=== PATIENT | female | born 1940 | race Caucasian/White ===

== ENCOUNTER 2023-10-12 05:09 | Emergency (ER) | payer MEDICARE, SELFPAY ==
[2023-10-12] VITALS (7 sets, daily range): BP systolic 105–130; BP diastolic 54–71; BMI 18.9
--- NOTE | 2023-10-12 07:47 | ED.GENMED ---
History of Present Illness
General
Chief Complaint: Breast Problem
Source: patient
Exam Limitations: none
Time Seen by Provider: 10/12/23 07:08
Nursing documentation reviewed up to this point in time: agreed with
Travel History
Have you had any contact with someone who has COVID-19?: No
Do you have any symptoms of coronavirus? Fever > 100 degrees, chills, cough, shortness of breath, sore throat, loss of taste or smell, muscle aches, or headache?: No
History of Present Illness
History of Present Illness:
Patient is an 82-year-old female on hospice for breast cancer brought by EMS for evaluation. Patient developed bleeding of right breast this morning and had syncopal episode. Patient reports she had bleeding from the left breast several nights ago
as well as prior to arrival. She reports she was walking to open the door for the nurse to come to her house when she felt like she was going to pass out. As documented she is on hospice and has hospice come out once per week.
She is on blood thinners. She denies any headache. She has no other complaints.
Review of Systems
Review of Systems
Allergies reviewed?: Yes
All Other Systems: ROS reviewed and negative except as documented in HPI and ROS
Constitutional: Reports no symptoms
EENT: Reports no symptoms
Respiratory: Reports no symptoms
Cardiac: Reports syncope
ABD/GI: Reports no symptoms; Denies nausea or vomiting
: Reports no symptoms
Musculoskeletal: Reports no symptoms
Skin: Reports no symptoms
Neurological: Reports no symptoms
Psychiatric: Reports no symptoms
Phy Exam
General Physical Exam
General Presentation: no apparent distress
General age: appears stated age
General Skin: warm and dry
General Habitus: elderly
General Mental: alert
General Hydration: appears well hydrated
Cardiovascular Exam
Cardiovascular Exam: regular rate/rhythm, no murmur and normal peripheral pulses
Pulmonary Exam
Pulmonary Exam: lungs clear and no respiratory distress
Neurological Exam
Neurological Exam: alert and oriented x3
Musculoskeletal Exam
Musculoskeletal Exam: full ROM
Skin Exam
Skin Exam: normal color, warm/dry and other (left breast macerated raw friable tissue slow intermittent bleeding throughout varies regions of breast tissue )
Psychiatric Exam
Psychiatric Exam: normal mood/affect
Course
Orders/Labs/Results
Orders:
Orders
10/12/23 07:41
IV Insert/Care/Rem.- Treatment PRN
10/12/23 07:42
Electrocardiogram (*1) Stat
Reason for Study: Other
Other Reason for Exam: chest pain
Cardiac Monitoring- Treatment ONCE
EKG- Treatment ONCE
10/12/23 07:53
Complete Blood Count/With Diff Urgent
Comprehensive Metabolic Panel Urgent
Troponin I Urgent
10/12/23 08:31
0.9% Sodium Chloride 1000 ml [Nss] 1,000 ml IV BOLUS
Ondansetron Injectable [Zofran] 4 mg IV NOW STA
Abnormal Lab Results
10/12/23
07:53
RBC 2.73 L 10^6/uL
(4.20-5.40)
Hgb 8.0 L g/dL
(12.0-16.0)
Hct 24.2 L %
(37.0-47.0)
RDW 15.0 H %
(11.5-14.5)
Absolute Lymphs (auto) 0.7 L 10^3/uL
(1.2-3.4)
Neutrophils % 81.6 H %
(42.2-75.2)
Lymphocytes % 10.5 L %
(20.5-51.1)
BUN 21 H mg/dl
(7-17)
Creatinine 0.5 L mg/dL
(0.6-1.0)
Glucose 107 H mg/dl
(70-99)
10/12/23 07:53
10/12/23 07:53
Vital Signs
Initial and Last Documented VS:
Initial Vital Signs
Temp Pulse Resp BP Pulse Ox
97.8 F 83 16 125/68 99
10/12/23 05:10 10/12/23 05:10 10/12/23 05:10 10/12/23 05:10 10/12/23 05:10
Last Documented Vital Signs
Temp Pulse Resp BP Pulse Ox
97.8 F 88 18 116/54 99
10/12/23 05:10 10/12/23 07:57 10/12/23 07:57 10/12/23 10:38 10/12/23 07:57
MDM/Problems Addressed
Differential Diagnosis Includes:
not limited to syncope , bleeding from left breast.
MDM/Problems Addressed:
Patient is an 82-year-old female as documented on hospice for left breast cancer untreated. Patient has had issues with intermittent bleeding in the breast and this morning called hospice nurse because of bleeding. On the way to get there where
she had a syncopal episode. She presented here awake alert no acute distress asymptomatic and had no dizziness or chest pain on arrival. She does have small mount of intermittent oozing from left breast. I did apply Gelfoam to the area with Hellen
and this has subsided. She is in no acute distress here eating and drinking here her hemoglobin is 8.0 I do not have any other labs on her. I did speak with hospice nurse Melissa over the phone who can arrange for more frequent visitations to help
and dress bleeding from left breast. Patient currently only has hospice once a week but they can increase as needed.
Patient will go home with outpatient hospice follow-up. She is in no acute distress.
*Pulse Oximetry
Patient hypoxic: no
*EKG
Interpreted by ED Provider?: Yes
Interpretation: normal
Heart Rate: 79
Rhythm: sinus
Ischemia: no ischemia
*Critical Care Note
Total Time (30-74mins, 75-104mins- exclusive of procedures): Not Applicable
ED Attending Note
-
Portions of this chart may have been created with voice recognition software.� Occasional wrong word or��sound alike� substitutions may have occurred due to the inherent limitations of voice recognition software.
Discharge Plan
Departure
Patient Disposition: Home (Routine Discharge)
Date of Disposition: 10/12/23
Time of Disposition: 10:29
Patient with high blood pressure during this ER visit?: No
Condition: Fair
Covid-19: Not Applicable
Discharge Problem:
Syncope, Bleeding from breast, Anemia
Instructions: Syncope (Fainting) (DC)
Prescriptions:
No Action
No Current Medications
0
Referrals:
Samuel Pacheco MD [Family Provider] -
Activity Restrictions/Additional Instructions:
You were seen here today for passing out and bleeding left breast. You are found to be anemic,.
please call hospice and arrange for more frequent visits to assist in daily dressing changes as needed for bleeding of left breast. You may return if needed if any worsening symptoms or concerns
Increase fluid intake and stay well hydrated.
Interventions
Interventions:
*Risk Screen - Suicide Last Done: 10/12/23 05:10
*General Assessment Last Done: 10/12/23 05:10
*Neglect/Abuse Screening Last Done: 10/12/23 05:10
ED- Fall Risk Assessment Last Done: 10/12/23 07:54
*ED COVID-19 Vaccine History Last Done: 10/12/23 05:10
*Nursing Disposition Last Done: 10/12/23 11:00
ED-Skin Assessment Last Done: 10/12/23 05:25
Discharge Date and Time
Discharge Date/Time: 10/12/23 11:05
Print Language: IRISH
[2023-10-12 08:32] LABS: % Basophils 0.7 % (0-2); % Eosinophils 0.1 % (0-6); % Immature Granulocytes 0.3 % (0-0.5); % Lymphocytes 10.5 % (20.5-51.1); % Monocytes 6.8 % (1.7-9.3); % Neutrophils 81.6 % (42.2-75.2); Absolute Basophils 0.1 10^3/uL (0-0.2); Absolute Lymphocytes 0.7 10^3/uL (1.2-3.4); Absolute Monocytes 0.5 10^3/uL (0.1-0.6); Absolute Neutrophils 5.5 10^3/uL (1.4-6.5); Hematocrit 24.2 % (37.0-47.0); Mean Corp Hgb Conc. 33.1 g/dL (33.0-37.0); Mean Corpuscular Hgb 29.3 pg (27.0-31.0); Mean Corpuscular Volume 88.6 fL (81.0-99.0); Mean Platelet Volume 9.5 fL (7.4-10.4); Nucleated Red Blood Cells % 0 %; Platelet Count 209 10^3/uL (130-400); Red Blood Cell Count 2.73 10^6/uL (4.20-5.40); White Blood Cell Count 6.8 10^3/uL (4.8-10.8)
[2023-10-12 08:45] LABS: ALT (SGPT) 11 U/L (0-35); AST (SGOT) 25 U/L (14-36); Albumin 3.6 g/dl (3.5-5.0); Alkaline Phosphatase 52 U/L (38-126); Blood Urea Nitrogen 21 mg/dl (7-17); Carbon Dioxide 27 mmol/L (22-30); Chloride 105 mmol/L (98-107); Estimated Creatinine Clearance 59 ml/min; Glucose 107 mg/dl (70-99); Potassium 5.1 mmol/L (3.5-5.1); Sodium 139 mmol/L (135-145); Total Bilirubin 0.5 mg/dl (0.2-1.3); Total Protein 6.3 g/dl (6.3-8.2); eGFR > 60.00
[2023-10-12 08:55] LABS: Troponin I < 0.012 ng/ml
== END 2023-10-12 11:05 | disposition home or self-care (01) ==
LOC: EMR 05:09
PROVIDERS: Nurse Practitioner; EMERGENCY PHYSICIAN Emergency Medicine; FAMILY PHYSICIAN Family Medicine
DX: R55 Syncope and collapse (principal); N64.59 Other signs and symptoms in breast; D64.9 Anemia, unspecified; C50.912 Malignant neoplasm of unspecified site of left female breast; Z79.01 Long term (current) use of anticoagulants
CPT/HCPCS: 99283; 80053; 84484; 85025; 93005

== ENCOUNTER 2024-09-15 10:20 | Emergency (ER) | payer MEDICARE, SELFPAY ==
[2024-09-15 10:28] VITALS: BP 114/56
--- NOTE | 2024-09-15 11:19 | ED.GENMED ---
History of Present Illness
General
Chief Complaint: Fall
Time Seen by Provider: 09/15/24 10:49
History of Present Illness
History of Present Illness:
83-year-old female presents the emergency department for evaluation of a scalp laceration. She fell this morning, reportedly had a dose of Ativan last night for anxiety and woke up dizzy. She has stage IV end-stage breast cancer and is on hospice
and is adamant that she wants no evaluation and treatment outside of wound care. She states to me that she is simply ready to and wants her wound taken care of so that she can be discharged home
Review of Systems
Review of Systems
Allergies reviewed?: Yes
All Other Systems: ROS reviewed and negative except as documented in HPI and ROS
Phy Exam
Physical Exam
Physical Exam:
GEN: Well appearing, NAD, WDWN
HEENT: 6 cm full-thickness laceration to the right temporal forehead minimal active bleeding, oral mucosa moist, no scleral icterus
Cardiac: Regular rate
Lung: No respiratory distress, no tachypnea
MSK: No gross deformity or injuries
Skin: Good color, no pallor or jaundice, no rashes
Neuro: AO x3, moves all extremities freely
Psych: Calm, cooperative
Course
Vital Signs
Initial and Last Documented VS:
Initial Vital Signs
Temp Pulse Resp BP Pulse Ox
97.7 F 103 16 114/56 97
09/15/24 10:28 09/15/24 10:28 09/15/24 10:28 09/15/24 10:28 09/15/24 10:28
Last Documented Vital Signs
Temp Pulse Resp BP Pulse Ox
97.7 F 103 16 114/56 97
09/15/24 10:28 09/15/24 10:28 09/15/24 10:28 09/15/24 10:28 09/15/24 10:28
Procedures
Laceration Closure
Right forehead:
Status of Wound: clean
Size of Wound in cm: 6
Description of Wound Edges: sharp
Preparation: cleaned with saline
Type of Closure: Dermabond-skin glue
MDM/Problems Addressed
MDM/Problems Addressed:
Patient was adamant she did not want head CT, I did discuss with the patient and family that obtaining an CT would provide objective information in regards to possible intracranial hemorrhage that could indicate a more rapid timeframe until ,
however they again declined. Although typically would not glue such a large wound, pt was adamant she did not want sutures as she would then need to return for removal, thus glue was applied
*Critical Care Note
Total Time (30-74mins, 75-104mins- exclusive of procedures): Not Applicable
ED Attending Note
-
Portions of this chart may have been created with voice recognition software.� Occasional wrong word or��sound alike� substitutions may have occurred due to the inherent limitations of voice recognition software.
Discharge Plan
Departure
Patient Disposition: Home (Routine Discharge)
Date of Disposition: 09/15/24
Time of Disposition: 11:19
Patient with high blood pressure during this ER visit?: No
Discharge Problem:
Forehead laceration
Instructions: Laceration Repair With Glue (DC)
Prescriptions:
No Action
No Current Medications
0
Interventions
Interventions:
*Nursing Disposition Last Done: 09/15/24 11:39
ED-Musculoskeletal Assessment Last Done: 09/15/24 11:22
ED- Neurological Assessment Last Done: 09/15/24 11:22
ED-Skin Assessment Last Done: 09/15/24 11:22
Discharge Date and Time
Discharge Date/Time: 09/15/24 11:40
Print Language: TRINIDADIAN
== END 2024-09-15 11:40 | disposition home or self-care (01) ==
LOC: EMR 10:20
PROVIDERS: EMERGENCY PHYSICIAN Emergency Medicine; FAMILY PHYSICIAN Family Medicine
DX: S01.81XA Laceration without foreign body of other part of head, initial encounter (principal); W19.XXXA Unspecified fall, initial encounter; C50.919 Malignant neoplasm of unspecified site of unspecified female breast; Z51.5 Encounter for palliative care
CPT/HCPCS: 12014; 99282

== ENCOUNTER 2025-04-28 10:09 | Emergency (ER) | payer OTHER, SELFPAY ==
[2025-04-28 10:17] VITALS: BP 138/57
--- NOTE | 2025-04-28 11:12 | ED.GENMED ---
History of Present Illness
General
Chief Complaint: Musculo-Skeletal Complaint
Time Seen by Provider: 04/28/25 10:55
History of Present Illness
History of Present Illness:
Anna Marie is an 84-year-old female with metastatic breast cancer who presents at the recommendation of home hospice for right shoulder pain. Denies any recent trauma or falls. Offers no other complaints. Pain was improved with medications yesterday.
Phy Exam
General Physical Exam
General Presentation: well appearing and no apparent distress
General Skin: warm and dry
General Habitus: normal
General Mental: alert
General Hydration: appears well hydrated
ENT Exam
ENT Exam: EOMI, pharynx normal, neck supple and normocephalic
Eye Exam
Eye Exam: PERRL, cornea clear and conjunctiva normal
Cardiovascular Exam
Cardiovascular Exam: regular rate/rhythm, no edema, no murmur and normal peripheral pulses
Pulmonary Exam
Pulmonary Exam: lungs clear, no respiratory distress, no rales, no crackles, no rhonchi, no stridor, no wheezing and no cough
Gastrointestinal Exam
Gastrointestinal Exam: normal bowel sounds, non tender, soft, no organomegaly, no pulsatile mass and non distended
Neurological Exam
Neurological Exam: alert, oriented x3, no motor deficits and speech normal
Musculoskeletal Exam
Musculoskeletal Exam: full ROM, no edema and other (Pain over right shoulder to palpation)
Skin Exam
Skin Exam: normal color, warm/dry, no rash and no petechia
Psychiatric Exam
Psychiatric Exam: normal mood/affect
Course
Orders/Labs/Results
Orders:
Orders
04/28/25 10:58
CR Shoulder - Right Min 2 View Urgent
Comment:
Reason For Exam: pain
04/28/25 12:08
Shoulder Immobilizer Right- Tx ONCE
Vital Signs
Initial and Last Documented VS:
Initial Vital Signs
Temp Pulse Resp BP Pulse Ox
36.6 C 70 16 138/57 97
04/28/25 10:17 04/28/25 10:17 04/28/25 10:17 04/28/25 10:17 04/28/25 10:17
Last Documented Vital Signs
Temp Pulse Resp BP Pulse Ox
36.6 C 70 16 138/57 97
04/28/25 10:17 04/28/25 10:17 04/28/25 10:17 04/28/25 10:17 04/28/25 10:17
MDM/Problems Addressed
Differential Diagnosis Includes:
X-ray obtained and negative for any fracture or dislocation. Incidentally did show some metastatic lesions on her ribs. Patient was aware of these findings. She is requesting a shoulder immobilizer for comfort. This has been provided to her.
She will continue to follow-up with hospice who is managing her pain medications.
*Pulse Oximetry
SaO2: 97
Oxygen Mode of Delivery: Room air
Patient hypoxic: no
*Critical Care Note
Total Time (30-74mins, 75-104mins- exclusive of procedures): Not Applicable
ED Attending Note
-
Portions of this chart may have been created with voice recognition software.� Occasional wrong word or��sound alike� substitutions may have occurred due to the inherent limitations of voice recognition software.
Discharge Plan
Departure
Patient Disposition: Home (Routine Discharge)
Date of Disposition: 04/28/25
Time of Disposition: 12:08
Patient with high blood pressure during this ER visit?: No
Discharge Problem:
Acute shoulder pain, Malignant neoplasm metastatic to breast
Instructions: Shoulder pain - ED (DC)
Prescriptions:
No Action
No Current Medications
0
Referrals:
Samuel Pacheco MD [Family Provider, Family Practice]
Activity Restrictions/Additional Instructions:
No evidence of any injury was seen on your x-ray. As discussed your x-ray showed some lesions in your ribs likely related to your metastatic breast cancer. Shoulder sling has been provided and is important to take this often to range her shoulder
often to prevent it from becoming stiff. Continue taking pain medications as prescribed by hospice.
Interventions
Interventions:
*General Assessment Last Done: 04/28/25 11:49
*Neglect/Abuse Screening Last Done: 04/28/25 11:49
*ED COVID-19 Vaccine History Last Done: 04/28/25 11:49
*ED Influenza Vaccine History Last Done: 04/28/25 11:49
[facility] Fall Risk Assessment Tool Last Done: 04/28/25 11:51
*Risk Screen - Suicide (C-SSRS) Last Done: 04/28/25 11:49
ED-Musculoskeletal Assessment Last Done: 04/28/25 11:49
Discharge Date and Time
Print Language: [email or web address]
== END 2025-04-28 12:51 | disposition home or self-care (01) ==
LOC: EMR 10:09
PROVIDERS: EMERGENCY PHYSICIAN Emergency Medicine; FAMILY PHYSICIAN Family Medicine
DX: M25.511 Pain in right shoulder (principal); C50.919 Malignant neoplasm of unspecified site of unspecified female breast; C79.51 Secondary malignant neoplasm of bone
CPT/HCPCS: 99283; 73030